=== PATIENT | female | born 1960 ===

== ENCOUNTER 2025-04-21 09:40 | Outpatient (REF) | payer OTHER, SELFPAY ==
--- NOTE | ~2025-04-21 | XR_ITS ---
EXAMINATION: XR ELBOW, RIGHT CLINICAL INFORMATION: M25.529 - Pain in unspecified elbow COMPARISON: None available. TECHNIQUE: AP, lateral, and oblique views of the right elbow. FINDINGS: No acute cortical disruption or malalignment. No lytic or blastic lesions. No joint effusion. No subcutaneous emphysema. No metallic or radiopaque foreign body. XR/XR elbow RT min 3V IMPRESSION: Normal x-ray. Electronically signed by: Chris Mckinney MD 04/21/2025 02:37 PM EDT
--- OUTSIDE RECORDS SUMMARY | 2025-04-21 10:16 | XMS_ITS | Data Portability ---
Author Organization [place] [facility], [facility], [facility] Address [address] [address] [place] [address] Care Team Providers Care Electronic Warfare Officer Name Role Phone CRUZ KOSTAS Primary Care Provider Assessment No assessment recorded. Plan of Treatment Reminders Order Date Submit Date Provider Last Modified By Organization Details Last Modified Time Details Appointments None record ed. Lab None record ed. Referral None record ed. Procedures None record ed. Surgeries None record ed. Imaging XR, foot 016 06/07/20 16 [id number] In-House Results, For Internal Use Only, Do Not Delete/merge, [id number] 04:15:14 Medication Orders None record ed. Patient TargetsNo targets recorded. Patient Instructions Encounter Date Encounter Id Patient Instructions Last Modified By Organization Details Last Modified Time 06/07/2016 [id number] 1) Chart reviewe d 2) xrays reviewed 3) I & D of right hallux lateral border[facility] Cleaned and freed lateral border of devitalized and fibrtotic tissue. 4) Pt instructed on proper care of post-op nail surgery, written instructions given to pt. Pt advised to report to ED if he notices any s/s of infection including N/V/F/C. 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 Not available 06/17/2016 11:16:01 I reviewed the etiology of the skin abscess with the patient using x-rays, diagrams and model, and answered all questions. Conservative treatment options were explained to patient including draining abcess, wound cultures, anti-biotic therapy. I have recommended conservative repair. Discussed s/s of infection. Pt is to report to ED if he notices any of these. He voiced understanding. Not available 06/17/2016 11:15:33 12/05/2016 [id number] 1) Chart reviewe d 2) Advised to patient that the right hallux nail is not loose, and no intervention is necessary this time. 3) discussed with patient that her pinch callus are due to the bunions and rubbing. 4) patient states she will have those taken care of at nail salon. 5) Recommned conservative care for bunions. 6) PRN. Not available 12/17/2016 14:55:15 I reviewed the etiology of the bunion with the patient using X-rays, diagrams, and models and answered all questions. Conservative treatment options were explained to patient including icing, NSAIDS, OTC or prescription orthotics, strappings, shoe modification. Surgical options were also discussed. I have recommended palliative care. I discussed the etiology of the condition and the surgical procedure at length with patient. Risks VS benefits along with complications specific to surgery as well as those general to foot and ankle surgery were discussed. I also explained the post-operative course, healing time, and application of any necessary implantable devices. All questions were answered and no guarantees were given as to the surgical outcome. [email or web address] Not available 12/17/2016 14:52:25 Reason for Referral None Reported. Results Created Date Observation Date Name Description Value Unit Range Abnormal Flag Note LastModifiedBy Organization Detail LastModifiedTime 06/07/20 16 06/12/2016 cultu re, anaer obic anaerobic microbiology procedure See Report Below CASE: [id number] PATIE NT: BEAR MCDANIEL IS MICRO BIOLO GIC CULTU RE RESUL TS: CULTU RE AEROB IC/AN AEROB IC SOURC E RIGHT GREAT TOE GRAM STAIN No white blood cells (poly s) seen Few gram negat sukhdeep rods CULTU RE Moder ate growt h of Enter obact er cloac ae No anaer obes isola halina STATU S FINAL 06/11 SUSCE PTIBI LITY ORGAN ISM Moder ate growt h of Enter obact er cloac ae METHO D ARYA Cefaz giacomo Resis tant >= 64 Cefep kelby Susce ptibl e <= 1 Cefox itin Resis tant >= 64 Cefpo doxim e Susce ptibl e 2 Cefta zidim e Susce ptibl e <= 1 Ceftr iaxon e Susce ptibl e <= 1 Cefur oxime Resis tant 16 Cefur oxime Axeti l Resis tant 16 Amoxi cilli n/Cla vulan ic Acid Resis tant >= 32 Genta micin Susce ptibl e <= 1 Tobra mycin Susce ptibl e <= 1 Cipro floxa amos Susce ptibl e <= 0.25 Levof loxac in Susce ptibl e <= 0.12 Tetra cycli ne Susce ptibl e 4 Trime thopr im/Valero lfame thoxa zole Susce ptibl e <= 20 Not Available [facility] ([facility]) [address], [place], [address], 06/12/2016 12:13:17 Result Notes None recorded. Problems Name Problem SNOMED Code Status Onset Date Resolution Date Notes Provider Name and Address Organization Details Recorded Time Pain in toe 517697735 Active Vadim Elise DPM [address] [facility], [place], [address] , [facility] 06/17/2016 11:16:39 Problem Notes None recorded. Procedures Surgical History Date Name Laterality Status Provider Name and Address Organization Details Recorded Time 6 Incision & Drainage completed Vadim Elise DPM [address] [facility], [place], [address], [facility] 06/17/2016 11:13:38 Imaging Results None recorded. Procedure Notes None recorded. Medical Equipment None Reported. Allergies No known drug allergies Medications Name Sig Start Date Stop Date Status Note LastModified by Organization Details LastModified Time carisoprodol 350 mg tablet active Not Available Not Available Not Available prednisone 10 mg tablet active Not Available Not Available Not Available hydrocodone 5 mg-acetaminophen 325 mg tablet active Not Available Not Availabl e Not Available prednisone 20 mg tablet active Not Available Not Available Not Available alendronate 70 mg tablet active Not Available Not Available Not Available prednisone 5 mg tablet active Not Available Not Available Not Available meclizine 12.5 mg tablet active Not Available Not Available Not Available prochlorperazine maleate 10 mg tablet active Not Available Not Available Not Available acyclovir 800 mg tablet active Not Available Not Available Not Available levothyroxine 75 mcg tablet active Not Available Not Available N ot Available levothyroxine 88 mcg tablet active Not Available Not Available N ot Available meclizine 25 mg tablet active Not Available Not Available Not Available hydrocodone 7.5 mg-acetaminophen 325 mg tablet active Not Available Not Availabl e Not Available cephalexin 500 mg capsule active Not Available Not Available Not Available mupirocin 2 % topical ointment active Not Available Not Avail able Not Available ergocalciferol (vitamin D2) 1,250 mcg (50,000 unit) capsule active Not Available Not Available Not Available methylprednisolone 4 mg tablets in a dose pack active Not Available Not Available No t Available amoxicillin 875 mg-potassium clavulanate 125 mg tablet active Not Available Not Available Not Available Prepopik 10 mg-3.5 gram-12 gram oral powder packet active Not Available Not Availabl e Not Available Vitals Date Recorded Body height Systolic And Diastolic Provider Name and Address Organization Details Last Updated DateTime 12/05/2016 162.56 cm 110/70 mm[Hg] Ivelisse Urrutia [facility] 12/05/2016 15:45:12 Date Recorded Body height Body weight Body mass index (BMI) Systolic And Diastolic Provider Name and Address Organization Details Last Updated DateTime 06/07/2016 162.56 cm 48784.93 g 24 kg/m2 116/80 mm[Hg] Ivelisse [facility]rrutia [facility] 06/07/2016 12:45:33 Social History Question Answer Notes LastModified by [facility] Details LastModified Time Tobacco Smoking Status Never Smoker Not Available [facility] 08/09/2020 03:28:06 Marital Status [email or web address] Informati on not available 06/07/2016 How Much Tobacco Do You Smoke? No [id number] Information not available 08/09/2020 Sex: Unknown Functional Status Question Answer Note LastModified by [facility] Details LastModified Time What is your level of alcohol consumption? 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 Family History Nothing Reported Notes:none reported Medical History Condition Response Thyroid Problems Y Gynecological HistoryNo gynecological history recorded. Obstetrics History GPAL:G 0 P 0 0 0 0 Immunizations Vaccine Type Date Status Note Provider Nam e and Address Organization Details Recorded Time Influenza, high-dose, trivalent, PF 10/07/[address] [facility] 06/07/2016 12:46:02 Past Encounters Encounter ID Performer Location Encounter Start Date Encounter Closed Date Diagnosis/Indication Diagnosis SNOMED-CT Code Diagnosis ICD10 Code Diagnosis Note [id number] [facility] [address] [facility] [employer] [address] [place] [phone] 06/07/2016 11:31:08 06/07/2016 12:38:53 Cellulitis and abscess of toe 679808506 L03.031 Pain in toe 279638889 M7 9.[id number] [facility] [address] [facility] [employer] [address] [place] [phone] 12/05/2016 15:33:35 12/05/2016 16:04:30 Acquired hallux valgus 57695113 M20.11 M20.12 Pinch callus 231127404 L 84 Bilateral Pain in toe 282879474 M7 9.674 M79.675 Health Concerns Section Related Observation LastModified by Organization Detai ls LastModified Time None Recorded Concern Status LastModified by Organization Details LastModified Time None Recorded Advance Directives Directive None Recorded Payers Insurance Date Sequence Insurance Name Policy Number Policy Rhodes Covered Member ID Rhodes Member ID Guarantor Name 12/05/2016 1 [facility] Bridget Oliva [id number] Bridget Oliva Notes Date Note Type Note Provider Name and Address Organization Details Recorded Time 06/07/2016 text/html Podiatry ToesReported bypatient.Location :right (hallux lateral border) Quality:throbbing; sharp; deep Severity:moderate; pain level 8/10 Duration:2-3 weeks Timing:acute Context:cannot identify Alleviating Factors:rest; No shoes, no presure Aggravating Factors:standing; walking; sneakers Associated Symptoms:no weakness; no numbness; no ecchymosis; no catching/locking; no popping/clicking; no buckling; no grinding; no instability; no drainage; no fever; no chills; no weight loss; no change in bowel/bladder habits; no tingling;swelling; redness;warmth;rad iation down leg; throbbing Previous Surgery:surgical procedure: (Right Hallux Lateral border Phenol and Alcohol Matrixectomy 2-3 with Splitter Operator) Prior Imaging:none Previous Injections:none Previous PT:noneNotes:55 y/o female presents to office with pain to Right great toe. Patient s/p 2-3 weeks phenol and alcohol of lateral border. She states she has gone back to income tax preparer two time with no relief. She has been on abx and topical muporicin cream but the pain did not get better. She is here for second opinion and would like to be evaluated. Vadim Elise DPM [address], [address], [facility], [facility] 12/04/2016 11:21:42 12/05/2016 text/html Podiatry ToesReported bypatient.Location :right (hallux lateral border) Quality:throbbing; sharp; deep Severity:moderate; pain level 8/10 Duration:2-3 weeks Timing:acute Context:cannot identify Alleviating Factors:rest; No shoes, no presure Aggravating Factors:standing; walking; sneakers Associated Symptoms:no weakness; no numbness; no ecchymosis; no catching/locking; no popping/clicking; no buckling; no grinding; no instability; no drainage; no fever; no chills; no weight loss; no change in bowel/bladder habits; no tingling;swelling; redness;warmth;rad iation down leg; throbbing Previous Surgery:surgical procedure: (Right Hallux Lateral border Phenol and Alcohol Matrixectomy 2-3 with Splitter Operator) Prior Imaging:none Previous Injections:none Previous PT:noneNotes:55 y/o female presents today for evaluation of her right hallux nail lifting up. Pt. states she noticed it a couple of months ago. Pt. has some aching, pain and tenderness with nail. Pt. also c/o right hallux callus on medial side of toe. No other complaints at this time. Vadim Elise, JOSH [address] [id number], [place], [address], [facility], [facility] 12/17/2016 14:55:49 OBGyn Episode No OBEpisode recorded.
--- OUTSIDE RECORDS SUMMARY | 2025-04-21 10:16 | XMS_ITS | Clinical Summary ---
Author Organization [facility] Address [address] [place] [address] Phone Care Team Providers Care Hydraulic Corrugating Machine Operator Name Role Phone Evan Garcia MD Primary Care Provider [phone] Surgical History Surgery Date Site/Laterality Comments KNEE ARTHROPLASTY 1997 Right PROCEDURE: [place] ARTHRS KNEE ABRASION ARTHRP/POLYMER TESTER DRLG/MICROFX; COMMENT: knee repair after injury Medical History Medical History Date Comments Hypothyroidism DX:Hypothyroidis m Social History Tobacco Use Types Packs/Day Years Used Date Smoking Tobacco: Never Smokeless Tobacco: Never Comments Unknown Sex and Gender Information Value Date Recorded Sex Assigned at Not on file Legal Sex Female 5:20 PM EST Gender Identity Not on file Sexual Orientation Not on file Obstetrics History Last Filed Vital Signs Vital Sign Reading Time Taken Comments Blood Pressure - - Pulse - - Temperature - - Respiratory Rate - - Oxygen Saturation - - Inhaled Oxygen Concentration - - Weight 69.9 kg (154 lb) 12/27/2021 2:41 PM EDT Height 162.6 cm (5' 4 ) 12/27/2021 2:41 PM EDT Body Mass Index 26.43 12/27/2021 2:41 PM EDT Plan of Treatment Upcoming Encounters Date Type Department Care Team (Late st Contact Info) Description 10/21/2025 2:30 PM EST Office Visit Bariatric Surgery - [place] [address] [phone] William Perez MD [address] [facility] [address] [place] [address] Health Maintenance Due Date Last Done Comments Breast Cancer Screening 1962 DTaP,Tdap,and Td Vaccines (1 - Tdap) 1981 Cervical Cancer Screening: P ap Smear 1983 Pneumococcal Vaccine: 50+ Ye ars (1 of 1 - PCV) 2012 Zoster Vaccines (1 of 2) 2012 Colorectal Cancer Screening: Colonoscopy 09/08/2022 Depression Screening 09/08/2022 HIV Screening 09/08/2022 Hepatitis C Screening 09/08/2022 Social Influencers of Health Screening 09/08/2022 COVID-19 Vaccine (1 - 2023-2 5 season) 2024 Influenza Vaccine (#1) 2025 RSV Immunization Adult Patie nts (1 - 1-dose 75+ series) 2037 HIB Vaccines Aged Out No longer eligi ble based on patient's age to complete this topic HPV Vaccines Aged Out No longer eligi ble based on patient's age to complete this topic Hepatitis A Vaccines Aged Out No long er eligible based on patient's age to complete this topic Hepatitis B Vaccines Aged Out No long er eligible based on patient's age to complete this topic IPV Vaccines Aged Out No longer eligi ble based on patient's age to complete this topic MMR Vaccines Aged Out No longer eligi ble based on patient's age to complete this topic Meningococcal ACWY Vaccine Aged Out N o longer eligible based on patient's age to complete this topic Meningococcal B Vaccine Aged Out No l onger eligible based on patient's age to complete this topic RSV Immunization Patients Un dimitry 20 months Aged Out No longer eligible b ased on patient's age to complete this topic Varicella Vaccines Aged Out No longer eligible based on patient's age to complete this topic Insurance Care Teams Hydraulic Corrugating Machine Operator Relationship Specialty Start Date End Date Evan Garcia MD PCP - General Internal Medicine 10/17/21
--- OUTSIDE RECORDS SUMMARY | 2025-04-21 10:16 | XMS_ITS | Patient Health Record ---
Author Organization [facility] Address [address] [address] Support Name Relationship Address Phone Bridget Oliva Guarantor Unknown [phone] Reason For Referral No Information Medications Medication SIG (Take, Route, Frequency, Duration) Notes Start Date End Date Status Levothyroxine Sodium 88 MCG Tablet 1 tablet on an empty stomach in the morning Orally Once a day Active Multi Adult Gummies Tablet Chewable Orally Not-Taking Calcium 1 tab Oral *please review for potential update for e-prescription and drug interaction check* Not-Taking Meclizine HCl 25 MG Tablet 1 tablet as needed Orally prn Not-Taking Vitamin D 5000 IU 1 tablet Daily *please review for potential update for e-prescription and drug interaction check* Active Levothyroxine Sodium *please rev iew for potential update for e-prescription and drug interaction check* Not-Taking Social History Social History Additional Details Category Social Info Options Details Migrated Social History Drugs/Alcohol: (Alcohol Screen (Audit-C)): Did you have a drink containing alcohol in the past year?: Yes, How often did you have a drink containing alcohol in the past year?: 2 to 4 times a month (2 points), How many drinks did you have on a typical day when you were drinking in the past year?: 1 or 2 drinks (0 point), Points: 2 ; Miscellaneous: (Children:):yes ;(Marital status:): ;(Travel outside of the [place]:):no ; Tobacco Use: (Tobacco use other than smoking:):Are you an other tobacco user? No ;(Tobacco Use/Smoking): Patient is a: nonsmoker ; Problems Problem Type SNOMED Code ICD Code Onset Dates Problem Status W/U Status Risk Notes Problem Constipation (08561032) Constipation, unspecified (K59.00) Active confirmed Problem Flatulence, eructation and gas pain (496124641) Abdominal distension (gaseous) (R14.0) Active confirmed Plan Of Treatment No Information Insurance Providers Payer Name Payer Address Payer Phone Subscriber Number Group Number Insured Name Patient Relationship to Insured Coverage Start Date Coverage End Date [employer] Pathway [id number] [address] [place] [phone] [id number] Bridget Oliva Self - patient is the insured Medical (General) History Medical History History ICD Code Hypothyroidism Viral labyrinthitis Hx of Rhabdomyolysis Surgical History Surgery Date(Month/Year) [place] Teeth Removal x4 Oophrectomy Right Knee surgery Hospitalization History Reason Date(Month/Year) Vertigo 05/19/15
--- OUTSIDE RECORDS SUMMARY | 2025-04-21 10:16 | XMS_ITS | Patient Health Record ---
Author Organization 1. 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 Name Role Phone Lia Renee Primary Care Provider [phone] Naman STUBBS-Sadaf Khan Allergies No Known Allergies Results Component Value Reference Range Notes SURESWAB(R) ADV JANETH VAGI NITIS (CV), TMA Reviewed date:10/14/2024 10:12:47 AM Interpretation: Performing Lab:[facility], [facility], [address] [place] [address], [phone] Dr Mohan Roman Notes/Report: RPR (MONITOR) W/REFL TITER ( Q) Reviewed date:10/14/2024 10:12:47 AM Interpretation: Performing Lab:AT, [facility], [address] [place] [address], [phone] Dr Mohan Roman Notes/Report: RPR (MONITOR) W/REFL TITER NON-REACTIVE NON-REACTIVE CBC (Diff/Plt) (Q/L) Reviewed date:10/14/2024 10:12:47 AM Interpretation: Performing Lab:AT, [facility], [address] [place] [address], [phone] [address] Mohan Roman Notes/Report: WHITE BLOOD CELL COUNT 2.9 3.8-10.8 Thousand/uL RED BLOOD CELL COUNT 4.29 3.80-5.10 Million/uL HEMOGLOBIN 12.0 11.7-15.5 g/dL HEMATOCRIT 36.7 35.0-45.0 % MCV 85.5 80.0-100.0 fL MCH 28.0 27.0-33.0 pg MCHC 32.7 32.0-36.0 g/dL For adults, a slight decrease in the calculated MCHC value (in the range of 30 to 32 g/dL) is most likely not clinically significant; however, it should be interpreted with caution in correlation with other red cell parameters and the patient's clinical condition. RDW 14.2 11.0-15.0 % PLATELET COUNT 258 140-400 Thousand/uL MPV 11.8 7.5-12.5 fL ABSOLUTE NEUTROPHILS [phone] cells/uL ABSOLUTE LYMPHOCYTES 5817 486-3157 cells/uL ABSOLUTE MONOCYTES 244 200-950 cells/uL ABSOLUTE EOSINOPHILS 70 15-500 cells/uL ABSOLUTE BASOPHILS 29 0-200 cells/uL NEUTROPHILS 43.6 LYMPHOCYTES 44.6 MONOCYTES 8.4 EOSINOPHILS 2.4 BASOPHILS 1.0 HIV 1/2 ANTIGEN/ANTIBODY,FOU RTH GENERATION W/RFL (Q) Reviewed date:10/14/2024 10:12:47 AM Interpretation: Performing Lab:AT, [facility], [address] [place] [address], [phone] Dr Mohan Roman Notes/Report: HIV AG/AB, 4TH GEN NON-REACTIVE NON-REACTIVE A general authorization for the release of medical or other information is NOT sufficient for this purpose. For additional information please refer to http://education.[employer]/faq/VKJ060 (This link is being provided for informational/ educational purposes only.) The performance of this assay has not been clinically validated in patients less than 2 years old. HIV-1 antigen and HIV-1/HIV-2 antibodies were not detected. There is no laboratory evidence of HIV infection. PLEASE NOTE: This information has been disclosed to you from records whose confidentiality may be protection, then the state law prohibits you from making any further disclosure of the information without the specific written consent of the person to whom it pertains, or as otherwise permitted by law. protected by state law. If your state requires such ACUTE HEPATITIS PANEL (REFL) (Q) Reviewed date:10/14/2024 10:12:47 AM Interpretation: Performing Lab:AT, [facility], [facility] [place], [phone] [address] Mohan Roman Notes/Report: HEPATITIS A IGM NON-REACTIVE NON-REACTIVE For additional information, please refer to http://[employer]/faq/ESM225 (This link is being provided for informational/ educational purposes only.) HEPATITIS B SURFACE ANTIGEN NON-REACTIVE NON-REACTIVE For additional information, please refer to http://[employer]/faq/CQO077 (This link is being provided for informational/ educational purposes only.) HEPATITIS B CORE ANTIBODY (IGM) NON-REACTIVE NON-REACTIVE For additional information, please refer to http://[employer]/faq/NHE614 (This link is being provided for informational/ educational purposes only.) HEPATITIS C ANTIBODY (REFL) NON-REACTIVE NON-REACTIVE HCV antibody was non-reactive. There is no laboratory evidence of HCV infection. In most cases, no further action is required. However, if recent HCV exposure is suspected, a test for HCV RNA (test code 98759) is suggested. For additional information please refer to http://[employer]/faq/JSN03y8 (This link is being provided for informational/ educational purposes only.) REFLEX TIQ OUR RECORDS INDICATE THAT YOU HAVE ORDERED ACUTE HEP PNL (REFL) ORDER CODE [id number]. THIS IS A REFLEX-SPECIFIC ORDER CODE. HOWEVER, ONLY THE INITIAL TEST WAS PERFORMED, BECAUSE WE DO NOT HAVE A REFLEX TESTING AUTHORIZATION FORM ON FILE FOR YOU. TO SPECIFYING (A) THE REFLEXIVE TEST AND (B) THE RESULTS THAT WILL TRIGGER THE PERFORMANCE OF THE REFLEX TEST. PLEASE CONTACT A PURCHASING CLERK AT [employer] IF YOU WOULD LIKE ADDITIONAL TESTING DONE OR CONTACT YOUR TILT WALL SUPERVISOR TO OBTAIN A COPY OF THE REFLEXIVE TESTING AUTHORIZATION FORM. PERFORM A REFLEX TEST WE NEED YOU TO SIGN AN AUTHORIZATION FORM TEST AUTHORIZATION Reviewed date:10/14/2024 10:12:47 AM Interpretation: Performing Lab:AT, [facility], [address] [place] [address], [phone] Dr Mohan Roman Notes/Report: TEST NAME: SURESWAB(R) ADV JANETH TEST CODE: [id number] CLIENT CONTACT: DISHA JARA REPORT ALWAYS MESSAGE SIGNATURE Federal regulations require that we maintain on file written authorization for all laboratory testing. Accordingly we are asking that the ordering physician or his or her authorized lead customer service representative The laboratory testing on this patient was verbally requested or confirmed by the ordering physician or his or her authorized lead customer service representative after contact with an employee of [employer]. sign a copy of this report and promptly return it to the automotive sales representative. Signature: COMMENT Please fax this signed page to [phone] or return it via your [employer] lining feller blindstitch. URINALYSIS IN HOUSE ONLY Reviewed date:10/12/2024 04:52:42 PM Interpretation: Performing Lab: Notes/Report: Leuk neg Negative - Nitrite neg Negative - Urobili 0.2 0.0 - 1.0 mg/dL Protein neg Negative - mg/dL pH 7.0 4.6 - 8.0 Blood trace-intact Negative - Sp. Gr. 1.020 1.001 - 1.035 Ketone neg Negative - mg/dL Bili neg Negative - Glucose neg Negative - mg/dL BASIC METABOLIC PANEL (Q/L) Reviewed date:10/14/2024 10:12:47 AM Interpretation: Performing Lab:AT, [facility], [address] [place] [address], [phone] Dr Mohan Roman Notes/Report: GLUCOSE 77 65-99 mg/dL Fasting reference interval UREA NITROGEN (BUN) 15 7-25 mg/dL CREATININE 1.04 0.50-1.05 mg/dL EGFR 61 > OR = 60 mL/min/1.73m2 BUN/CREATININE RATIO SEE NOTE: 6-22 (calc) Not Reported: BUN and Creatinine are within reference range. SODIUM 140 135-146 mmol/L POTASSIUM 3.8 3.5-5.3 mmol/L CHLORIDE 103 98-110 mmol/L CARBON DIOXIDE 28 20-32 mmol/L CALCIUM 9.6 8.6-10.4 mg/dL HEMOGLOBIN A1C (Q/L) Reviewed date:10/14/2024 10:12:47 AM Interpretation: Performing Lab:AT, [facility], [address] [place] [address], [phone] Dr Mohan Roman Notes/Report: HEMOGLOBIN A1c 5.7 <5.7 % of total Hgb prediabetes and should be confirmed with a follow-up test. For someone with known diabetes, a value <7% indicates that their diabetes is well controlled. A1c targets should be individualized based on duration of diabetes, age, comorbid conditions, and other considerations. This assay result is consistent with an increased risk of diabetes. Currently, no consensus exists regarding use of hemoglobin A1c for diagnosis of diabetes for children. For someone without known diabetes, a hemoglobin A1c value between 5.7% and 6.4% is consistent with SURESWAB(R) ADVANCED BV/CT/N G, TMA (Q) Reviewed date:10/14/2024 10:12:47 AM Interpretation: Performing Lab:AT, [facility], [address] [place] [address], [phone] Dr Mohan Roman Notes/Report: SURESWAB(R) ADV BACTERIAL VAGINOSIS (BV), TMA POSITIVE NEGATIVE CHLAMYDIA TRACHOMATIS RNA, TMA, UROGENITAL NOT DETECTED NOT DETECTED NEISSERIA GONORRHOEAE RNA, TMA, UROGENITAL NOT DETECTED NOT DETECTED For additional information, please refer to https://education.[employer]/faq/LJF602 (This link is being provided for information/ educational purposes only.) SURESWAB(R) ADV JANETH VAGI NITIS (CV), TMA Reviewed date:10/15/2024 03:21:50 PM Interpretation: Performing Lab:AT, [facility], [address] [place] [address], [phone] Dr Mohan Roman Notes/Report: JANETH SPECIES NOT DETECTED NOT DETECTED JANETH GLABRATA NOT DETECTED NOT DETECTED Janeth species C. albicans, C. tropicalis, C. parapsilosis, and/or C. dubliniensis can be detected, but not differentiated, in the Janeth spp. result. Reason For Referral No Information Medications Medication SIG (Take, Route, Frequency, Duration) Notes Start Date End Date Status levothyroxine 112 mcg (0.112 mg) 1 tab(s) orally once a day for 90 days 08/21/2023 Active phentermine 37.5 mg 1 tab(s) orally once a day for 30 days 06/03/2024 Active PROzac 40 mg 1 cap(s) orally once a day for 30 days Active ALPRAZolam 0.5 mg 1 tab(s) orally bertram y prn for 30 days 02/11/2024 Active ValACYclovir Hydrochloride 500 mg 1 tab(s) orally q12 hours x 3 days; may extend to 7 days if needed for 30 days 12/04/2023 Active Diflucan 150 mg 1 tab(s) orally once may repeat in 72 hours if needed for 3 days 08/21/2023 Not-Taking Immunizations Vaccine Route Administration Date Status Comme nts Flu shot (Private Insurance) IM Intramuscular 06/26/2019 Administered Influenza, 6-35 months IM Intramuscular 07/19/2015 Administered anum vaccine [facility] [place]# [id number] Social History Tobacco Use: Social History Observation Description Date Details (start date - stop date) Never Smoker NA - NA Tobacco Use/Smoking: Question Answer Notes Are you a: never smoker Additional Findings: Tobacco Non-User Current no n-smoker Alcohol Screening Question Answer Notes Did you have a drink containing alcohol in the p ast year? Yes How often did you have six o r more drinks on one occassion in the past year? Never (0 points) How many drinks did you have on a tpical day when you were drinking in the past year? 1 or 2 (0 points) How often did you have a dri nk containing alcohol in the past year? Weekly (3 points) Points 3 Interpretation Positive Problems Problem Type SNOMED Code ICD Code Onset Dates Problem Status W/U Status Risk Notes Problem Vitamin D deficiency (34593925) Vitamin D deficiency, unspecified (E55.9) Active confirmed Problem Adult health examination (793501611) Encounter for general adult medical examination without abnormal findings (Z00.00) Active confirmed Problem Hypothyroidism (47302926) Hypothyroidism, unspecified (E03.9) Active confirmed Problem Abnormal weight gain (967380460) Abnormal weight gain (R63.5) Active confirmed Problem Low back pain (304304933) Low back pain (M54.5) Active confirmed Problem Anogenital herpesviral infection (351266130) Anogenital herpesviral infection, unspecified (A60.9) Active confirmed Problem Candidiasis (17400773) Candidiasis, unspecified (B37.9) Active confirmed Problem Leukopenia (51011943) Decreased white blood cell count, unspecified (D72.819) Active confirmed Problem 91952305 Acute stress reaction (F43.0) Active confirmed Problem Adjustment disorder with mixed emotional features (04507095) Adjustment disorder with mixed anxiety and depressed mood (F43.23) Active confirmed Problem Hearing loss (61708017) Unspecified hearing loss, left ear (H91.92) Active confirmed Problem Rhabdomyolysis (196507253) Rhabdomyolysis (M62.82) Active confirmed Problem Age-related osteoporosis (230512082) Age-related osteoporosis without current pathological fracture (M81.0) Active confirmed Problem Vaginitis, vulvitis and vulvovaginitis in diseases classified elsewhere (N77.1) Active confirmed Problem Perimenopausal disorder (691928924) Other specified menopausal and perimenopausal disorders (N95.8) Active confirmed Problem Abnormal findings on microbiological examination of urine (562077645) Unspecified abnormal findings in urine (R82.90) Active confirmed Problem Screening for malignant neoplasm of breast (870993991) Encounter for screening mammogram for malignant neoplasm of breast (Z12.31) Active confirmed Problem Screening for malignant neoplasm of cervix (746633302) Encounter for screening for malignant neoplasm of cervix (Z12.4) Active confirmed Problem History of polyp of colon (situation) (243082193) Personal history of colonic polyps (Z86.010) Active confirmed Problem Panic disorder (838989510) Panic disorder [episodic paroxysmal anxiety] (F41.0) Active confirmed Problem Muscle pain (10137460) Myalgia, unspecified site (M79.10) Active confirmed Vital Signs Temperature 97.6 degrees Fahrenheit 10/12/2024 Respiratory Rate 16 /min 10/12/2024 Oximetry 95 10/12/2024 Blood pressure diastolic 78 mm Hg 10/12/2024 Height 63 in 10/12/2024 Blood pressure systolic 119 mm Hg 10/12/2024 Weight 155.4 lbs 10/12/2024 BMI 27.52 kg/m2 10/12/2024 Encounters Encounter Location Date Provider Diagnosis 2. [facility] [address] [address] 05/06/2024 Sadaf [place] Acute stress reaction F43.0 and Anogenital herpesviral infection, unspecified A60.9 1. [facility] [address] [address] 07/09/2024 Sadaf [place] Acute stress reaction F43.0 and Recurrent vaginitis N76.0 1. [facility] [address] [address] 09/17/2024 Sadaf [place] Acute stress reaction F43.0 1. [facility] [address] [address] 10/12/2024 Renee Griffithsly Acute vaginitis N76.0 ; Other specified bacterial agents as the cause of diseases classified elsewhere B96.89 and Acute cystitis with hematuria N30.01 1. [facility] [address] [address] 05/18/2024 Sadaf [place] 1. [facility] [address] [address] 05/26/2024 Sadaf [place] Anogenital herpesviral infection, unspecified A60.9 1. [facility] [address] [address] 05/27/2024 Sadaf [place] 1. [facility] [address] [address] 06/01/2024 Sadaf [place] 1. [facility] [address] [address] 06/02/2024 Sadaf [place] 1. [facility] [address] [address] 06/17/2024 Sadaf [place] 1. [facility] [address] [address] 07/08/2024 Sadaf [place] [id number]/IMAJC (Do not use) [address] [place] [phone] 07/14/2024 Sadaf [place] 1. [facility] [address] [address] 07/17/2024 Sadaf [place] 1. [facility] [address] [address] 09/10/2024 Sadaf [place] 1. [facility] [address] [address] 09/15/2024 Sadaf [place] ZZ1NSH/IMAJC (Do not use) [address] [place] [phone] 09/17/2024 Sadaf [place] 1. [facility] [address] [address] 10/01/2024 Sadaf [place] Recurrent vaginitis N76.0 1. [facility] [address] [address] 10/13/2024 Renee Fitzgerald 1. [facility] [address] [address] 10/15/2024 Renee Fitzgeradl 1. [facility] [address] [address] 10/27/2024 Renee iFtzgerald 1. [facility] [address] [address] 10/28/2024 Renee Fitzgerald 1. [facility] [address] [address] 11/24/2024 Sadaf [place] Assessments Encounter Date Diagnosis (ICD Code) Assessment Notes Treatment Notes Treatment Clinical Notes Section Notes 05/06/2024 Anogenital herpesviral infection, unspecified (ICD-10 - A60.9) 05/06/2024 Acute stress reaction (ICD-10 - F43.0) Agree w/STD, will completed paperwork when received. Discussed MOA of medications, SSRI can take 2-4 wks to be effective, benzo can be habit forming so to use sparingly. Discussed potential SE of medications. Discussed treatment goals for anxiety and need for at least 6-12 months on SSRI, if needed safer to be on longer. Discussed benefits of cognitive behavioral therapy w/a counselor. Reviewed relaxation techniques, sleep hygiene. 05/26/2024 Anogenital herpesviral infection, unspecified (ICD-10 - A60.9) 07/09/2024 Acute stress reaction (ICD-10 - F43.0) Continue w/counseling and appts w/me q4w or sooner as long as she is on leave. 07/09/2024 Recurrent vaginitis (ICD-10 - N76.0) 09/17/2024 Acute stress reaction (ICD-10 - F43.0) Continue w/counseling and appts w/me q4w or sooner as long as she is on leave. 10/01/2024 Recurrent vaginitis (ICD-10 - N76.0) 10/12/2024 Other specified bacterial agents as the cause of diseases classified elsewhere (ICD-10 - B96.89) 10/12/2024 Acute vaginitis (ICD-10 - N76.0) Patient with history of recurrent bacterial vaginosis multiple courses of metronidazole use in the past recent patient was months ago if she was prescribed while she was out of town but had not started the metronidazole treatment yet patient has never used any vaginal applicators so far she was treated for STD while in college but none recently agreeable for checking for STDs and initiation of BV treatmentWith metronidazole 500 twice daily for 7 days 10/12/2024 Acute cystitis with hematuria (ICD-10 - N30.01) Urinalysis in house shows nitrate leuk negative trace blood Patient has no complaints of increased frequency or urgency at this time except for complaints of dark-colored urine some discomfort 05/06/2024 Other This visit was completed via [employer] All issues as above were discussed and addressed but no physical exam was performed. The patient was given the right to refuse telehealth services without affecting the right to future care/treatment and the right to receive in-person services. If it was felt that the patient should be evaluated in clinic, then, the patient was directed there. The patient was notified of their right to be informed of the parties who will be present at each end of the telehealth consultation and has the right to exclude anyone from either site. Pt, also, has the right to see an appropriately trained staff or employee in-person immediately after the telehealth consultation if an urgent need arises. The patient verbally consented to this visit (see pt docs). Spent 22 minutes with pt face to face and more that 50% of this time was spent in counseling and coordination of care. 07/09/2024 Other This visit was completed via [employer]. All issues as above were discussed and addressed but no physical exam was performed. The patient was given the right to refuse telehealth services without affecting the right to future care/treatment and the right to receive in-person services. If it was felt that the patient should be evaluated in clinic, then, the patient was directed there. The patient was notified of their right to be informed of the parties who will be present at each end of the telehealth consultation and has the right to exclude anyone from either site. Pt, also, has the right to see an appropriately trained staff or employee in-person immediately after the telehealth consultation if an urgent need arises. The patient verbally consented to this visit (see pt docs). Spent 38 minutes with pt face to face and more that 50% of this time was spent in counseling and coordination of care. 09/17/2024 Other This visit was completed via [employer] All issues as above were discussed and addressed but no physical exam was performed. The patient was given the right to refuse telehealth services without affecting the right to future care/treatment and the right to receive in-person services. If it was felt that the patient should be evaluated in clinic, then, the patient was directed there. The patient was notified of their right to be informed of the parties who will be present at each end of the telehealth consultation and has the right to exclude anyone from either site. Pt, also, has the right to see an appropriately trained staff or employee in-person immediately after the telehealth consultation if an urgent need arises. The patient verbally consented to this visit (see pt docs). Spent 17 minutes with pt face to face and more that 50% of this time was spent in counseling and coordination of care. Plan Of Treatment Pending Test Test Name Order Date URINALYSIS IN HOUSE ONLY 05/08/2017 Total T4 06/18/2016 Total T4 09/03/2016 Ultrasound : Abdomen and Pelvis 05/12/20 18 Bone density 02/08/2020 Bone density 11/28/2021 Bone density 07/19/2015 Bone density 05/13/2018 Mammogram 05/13/2019 Mammogram 05/12/2018 Mammogram 02/08/2020 Mammogram 05/08/2017 TSH (Thyroid Stimulating Hormone) 2015 TSH (Thyroid Stimulating Hormone) 2015 EKG 04/30/2022 EKG 05/08/2017 bacterial culture- vaginal 10/12/2024 Herpes I and II, IgG with Reflex (Spectr um Only) 07/25/2017 - Chlamydia and GC Probe Amp,TP Vial 03/2025 T3, TOTAL 06/18/2016 T3, TOTAL 09/03/2016 T-4, FREE 09/03/2016 T-4, FREE 06/18/2016 CULTURE, HERPES SIMPLEX VIRUS, RAPID MET HOD 11/21/2020 - 09/05/2015 - 11/01/2015 LIPID PANEL WITH REFLEX TO DIRECT LDL LIPID PANEL WITH REFLEX TO DIRECT LDL LIPID PANEL WITH REFLEX TO DIRECT LDL Vitamin B12 05/08/2017 VITAMIN D, 1,25 DIHYDROXY LC/MS/MS (Q) 0 04/05/2022 CBC (H/H, RBC, INDICES, WBC, PLT) (Q) HEMOGLOBIN A1c (Q) 05/18/2022 CULTURE, YEAST, W/DIRECT FLUORESCENT GANESH 10/25/2020 SURESWAB (Trichomonas Vaginalis) (Q) PAP REFLEX HPV *use this one 11/28/2021 COMPREHENSIVE METABOLIC PANEL 05/13/2019 CBC (INCLUDES DIFF/PLT) 05/13/2019 CBC (INCLUDES DIFF/PLT) 11/28/2021 TSH 05/13/2019 VITAMIN B12 (Q/L) 04/20/2019 COMPREHENSIVE METABOLIC PANEL (Q/ L) CBC (Diff/Plt) (Q/L) 04/05/2022 T4, FREE (Q/L) 04/05/2022 TSH (Q/L) 11/28/2021 TSH (Q/L) 02/08/2020 VITAMIN D,25-OH,TOTAL,IA (Q) 11/28/2021 BV/VAGINITIS PANEL DNA PROBE (Q) 022 CULTURE, URINE, ROUTINE (Q/L) 05/18/2022 CULTURE, URINE, ROUTINE (Q/L) 09/03/2022 CULTURE, URINE, ROUTINE (Q/L) 11/28/2021 CULTURE, URINE, ROUTINE (Q/L) 10/25/2020 URINALYSIS, COMPLETE 10/25/2020 URINALYSIS, COMPLETE 11/28/2021 VITAMIN B12/FOLATE, SERUM PANEL (Q) 05/07 HEMOGLOBIN A1C WITH MPG (Q) 10/12/2024 URINALYSIS MICROSCOPIC (Q) 05/18/2022 BMP WITH ESTIMATED GFR 10/12/2024 C TRACHOMATIS/N. GONORRHOEAE RNA, TMA BV/VAGINITIS PANEL DNA PROBE (Q) 021 BV/VAGINITIS PANEL DNA PROBE (Q) 021 BV/VAGINITIS PANEL DNA PROBE (Q) 019 HEMOGLOBIN A1C (Q/L) 04/20/2019 HUI IFA CASCADE & RHEUM ARTHRITIS PANEL 2 W/REFLEXES (Q) 05/31/2022 TSH (Q) 04/05/2022 Insurance Providers Payer Name Payer Address Payer Phone Subscriber Number Group Number Insured Name Patient Relationship to Insured Coverage Start Date Coverage End Date [facility] [place] [id number] [place] [id number] Bridget Oliva Self - patient is the insured Medications Administered Medication Instructions Date of Administration Dosage Notes Toradol 60mg per 2mL (30mg per mL) 09/05/2015 60 mg anum vaccine [facility] [place]# [id number] Medical (General) History Medical History History ICD Code Hypothyroidism vertigo Surgical History Surgery Date(Month/Year) Hospitalization History Reason Date(Month/Year) [facility] - Rhabdomyolysis 09/25 17 [facility] - Rhabdomyolysis 04/2018
== END 2025-04-21 09:41 | disposition home or self-care (01) ==
LOC: HO.HOSX 09:40
PROVIDERS: Visit Provider Physician Assistant
DX: M77.11 Lateral epicondylitis, right elbow (principal); M25.521 Pain in right elbow
CPT/HCPCS: 20550; 73080; 99202; J1100; J2003

== ENCOUNTER 2025-04-21 14:23 | Outpatient (AMB) | payer OTHER, SELFPAY ==
--- NOTE | 2025-04-21 14:37 | A.OFFVIS_ITS ---
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 Reports she would have periods where the pain would resolve but then it eventually returns. She describes her pain as throbbing and aching. She has not been able to be as active and work out due to her pains and this has been very difficult for her. Expresses palpitation of the area causes soreness. When she reaches out with her right arm she reports she can feel a strain. 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 Denies hx of DM. Has not tried injections. Therapy, icing and OTC medications do not offer relief. 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 Reports she would have periods where the pain would resolve but then it eventually returns. She describes her pain as throbbing and aching. She has not been able to be as active and work out due to her pains and this has been very difficult for her. Expresses palpitation of the area causes soreness. When she reaches out with her right arm she reports she can feel a strain. 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 Denies hx of DM. Has not tried injections. Therapy, icing and OTC medications do not offer relief. 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 Exam Vital Signs: BMI result Body Mass Index 26.9 Extrem Other: Patient's right elbow normal to inspection No erythema, ecchymosis, edema noted No lacerations, abrasions, open areas No evidence of infection Patient reports tenderness to palpation of the right lateral epicondyle No tenderness to palpation of the medial epicondyle, olecranon process, radial head, or elsewhere in the right elbow Range of motion of the right elbow full and intact Positive Cozen's test in the right Negative reverse Cozen's test on the right Distal sensation intact Capillary refill brisk Office Procedures AMB Tendon Injection Tendon Injection [id number] Tendon Sheath Injection All charges added?: Procedure code (CPT) selection complete Assessment & Plan Assessment & Plan (1) Right lateral epicondylitis: Code(s): M77.11 - Lateral epicondylitis, right elbow Category: Medical Plan 1. Lateral epicondylitis of right elbow Patient is educated about this condition Patient is educated about the treatment options available Patient would like to proceed with steroid injection The risks and benefits of a steroid injection including but not limited to risk of damage to blood vessels, nerves, tendons, infection, skin bleaching, failure to improve symptoms, increased pain, and possible need for further injections or other intervention were discussed with the patient and the patient wishes to proceed with the steroid injection. Once consent was obtained, I sterilely prepped the area over the lateral epicondyle of the right elbow. I then injected the area over the lateral epicondyle with a combination of 40 mg of dexamethasone and 1 mL of 1% lidocaine. The patient tolerated the procedure well with no complications. If the patient continues to experience symptoms over the next 4 weeks, they can make an appointment to return and discuss alternative treatment measures, such as physical therapy. Follow-up prn Coding Level of Care Code Est Pt Level 3 (55445) Diagnoses Right lateral epicondylitis M77.11 CPT Codes Tendon Injection - Tendon Injection 1: [id number] Tendon Sheath Injection ([id number])
[2025-04-21 14:38] VITALS: BMI 26.9
--- OUTSIDE RECORDS SUMMARY | 2025-04-21 15:05 | XMS_ITS ---
Author Name [facility] Organization Unknown History of Medication Use Medication Directions Dispensed Refills Start Date End Date Stat meloxicam 15 mg tablet Take 1 tablet every day by oral route as needed. 12/10/2023 active albuterol sulfate HFA 90 mcg/actuation aerosol inhaler INHALE 2 PUFFS BY MOUTH EVERY 6 HOURS active amoxicillin 875 mg-potassium clavulanate 125 mg tablet TAKE 1 TABLET BY MOUTH EVERY 12 HOURS FOR 7 DAYS active codeine 10 mg-guaifenesin 100 mg/5 mL oral liquid TAKE 10 ML BY MOUTH EVERY 6 HOURS NEEDED active cyclobenzaprine 5 mg tablet TAKE 1 TO 2 TABLET BY MOUTH ONCE A DAY NEEDED FOR 14 DAYS active levothyroxine 100 mcg tablet TAKE 1 TABLET BY MOUTH EVERY DAY active levothyroxine 112 mcg tablet TAKE 1 TABLET BY MOUTH EVERY DAY active meclizine 25 mg tablet TAKE 1 TABLET BY MOUTH THREE TIMES DAILY FOR 5 DAYS NEEDED FOR DIZZINESS active methylprednisolone 4 mg tablets in a dose pack FOLLOW PACKAGE DIRECTIONS active valacyclovir 500 mg tablet active Problems Problem Status Onset Date Problem Type Date of Resoluti on Source Tendinitis of hip active 2023-12-10 ProblemAct [facility] Pain of left hip joint active 2023-11-27 ProblemAct E[facility]ON[facility] Encounters Encounter Type Encounter Reason Primary Diagnosis Location Date Ambulatory [facility] 07/31/2024 Ambulatory [facility] [place] 07/07/2024 Ambulatory [facility] [place] 06/02/2024 Ambulatory [facility] 03/24/2024 Ambulatory [facility] [place] 02/17/2024 Ambulatory [facility] [place] 01/13/2024 Ambulatory [facility] 12/31/2023 Ambulatory [facility] [place] 12/30/2023 Ambulatory [facility] [place] 12/10/2023 Ambulatory [facility] [place] 11/27/2023 Ambulatory [facility] [place] 11/27/2023 Ambulatory [facility] [place] 11[facility]27/2023 Ambulatory [facility] [place] 11/27/2023 Ambulatory [facility] [place] 11/27/2023 Care Team Organization Name Specialty Phone Email Start Date End Gareth persaud [facility] NO PCP Primary Care 12/13/2023
== END 2025-04-21 15:27 | disposition home or self-care (01) ==
LOC: HO.HOS 14:23
DX: M77.11 Lateral epicondylitis, right elbow (principal)
CPT/HCPCS: 20550; 99203

== ENCOUNTER → 2025-04-21 14:27 | Outpatient (BNV) | payer OTHER, SELFPAY | PROVIDERS: Visit Provider Radiology Diagnostic Radiology | DX: M25.521 Pain in right elbow (principal) | CPT/HCPCS: 73080 ==